=== PATIENT | male | born 1990 | race Hispanic/Latino ===

== ENCOUNTER 2024-03-06 15:37 | Emergency (ER) | payer OTHER ==
[~2024-03-06] VITALS: Ht 180.3 cm; Wt 83.3 kg
[2024-03-06] MEDS ORDERED: [UNRECOGNIZED DRUG - OTHER] (15:52)
[2024-03-06] MEDS: SODIUM CHLORIDE 0.9% 1000ML 1,000 ML IV STA ×2 (16:45→18:00)
[2024-03-06 18:00] VITALS: PULSE 117; RESP 20
[2024-03-06] MEDS: ALBUTEROL/IPRATROPIUM 3 ML NEB NEB ONE (18:00)
[2024-03-06] MEDS ORDERED: IOPAMIDOL 370 MG/ML 100 ML INFUS..BTL INJ ONE (18:53)
[2024-03-06] MEDS ORDERED: AZITHROMYCIN250 MG PO (20:14)
[2024-03-06] MEDS ORDERED: VENTOLIN HFA18 GM INH (20:14)
[2024-03-06] MEDS ORDERED: BROMFED DM COU118 ML PO (20:14)
[2024-03-06] MEDS ORDERED: PREDNISONE20 MG PO (20:14)
[2024-03-06 20:45] VITALS: PULSE 103; RESP 18; TEMP 98.3; O2SAT 95
== END 2024-03-06 20:45 | disposition home or self-care (01) ==
LOC: FSED 15:46
DX: R50.9 Fever, unspecified (principal); R06.00 Dyspnea, unspecified; R00.0 Tachycardia, unspecified; R05.9 Cough, unspecified; Z11.52 Encounter for screening for COVID-19; R94.31 Abnormal electrocardiogram [ECG] [EKG]
CPT/HCPCS: 0223U; 71046; 71260; 80053; 82553; 84484; 85025; 85379; 87400; 93005; 99284; J7030; Q9967